=== PATIENT | female | born 1955 | race Caucasian/White ===

== ENCOUNTER 2022-06-24 07:13 | Inpatient (IN) ==
--- NOTE | 2022-06-03 12:03 | PAT Medication Instructions ---
Medication Instructions Date of Service June 03, 2022 Home Medications amoxicillin 875 mg-potassium clavulanate 125 mg tablet 1 tab PO BID atorvastatin 20 mg tablet 20 mg PO QAM cholecalciferol (vitamin D3) 25 mcg (1,000 unit) capsule (Vitamin D3) 25 mcg PO QAM cyanocobalamin (vitamin B-12) 1,000 mcg tablet (Vitamin B-12) 1,000 mcg PO Q OTHER DAY gabapentin 400 mg tablet 400 mg PO QID levothyroxine 50 mcg tablet 50 mcg PO QAM metformin 500 mg tablet 500 mg PO QAM metoprolol tartrate 25 mg tablet 25 mg PO QAM prednisone 20 mg tablet 40 mg PO QAM triamterene 37.5 mg-hydrochlorothiazide 25 mg tablet 1 tab PO QAM zinc 50 mg capsule 50 mg PO QAM zolpidem 10 mg tablet 10 mg PO HS Continue as directed amoxicillin 875 mg-potassium clavulanate 125 mg tablet 1 tab PO BID prednisone 20 mg tablet 40 mg PO QAM DO NOT take the morning of surgery cholecalciferol (vitamin D3) 25 mcg (1,000 unit) capsule (Vitamin D3) 25 mcg PO QAM cyanocobalamin (vitamin B-12) 1,000 mcg tablet (Vitamin B-12) 1,000 mcg PO Q OTHER DAY metformin 500 mg tablet 500 mg PO QAM triamterene 37.5 mg-hydrochlorothiazide 25 mg tablet 1 tab PO QAM zinc 50 mg capsule 50 mg PO QAM Take morning of surgery With a small sip of water, OTHERWISE NOTHING TO EAT OR DRINK AFTER MIDNIGHT: atorvastatin 20 mg tablet 20 mg PO QAM gabapentin 400 mg tablet 400 mg PO QID levothyroxine 50 mcg tablet 50 mcg PO QAM metoprolol tartrate 25 mg tablet 25 mg PO QAM Take evening before surgery gabapentin 400 mg tablet 400 mg PO QID zolpidem 10 mg tablet 10 mg PO HS Other Notes If you have any questions please call us at [phone] or [phone] or [phone] or [phone]
--- NOTE | 2022-06-10 12:36 | Anesthesiology Consultation ---
Date of Service June 10, 2022 Assessment & Plan (1) Encounter for pre-operative examination: - Check BSG AM DOS - COVID screening: Per assessment on 06/10: No known COVID-19 positive contacts. Travel screen negative. Patient vaccinated. Recent sinus infection- symptom onset a few weeks ago now resolved s/p abx/prednisone (completed course). Patient feeling well- denies any Covid-related symptoms at PAT visit 06/10/22. Covid test done at PAT 06/10/22 came back negative. - Hypokalemia: Potassium 3.1 on preop labs done 06/10/22. Note written to PCP- Awaiting hypokalemia response ([facility]/Marina Bethea PAC). Chart Review Chart Review: Patient seen in Pre Admission Testing Teaching & Discussion Pre-Anesthesia Teaching/Discussion Notes: Instructed NPO after midnight before surgery,except medications with 15 cc of water. Medication instructions provided according to the [facility] guidelines. History Surgery Operation Date: 06/24/22 09:35 Proposed Procedures p L3-L5 Decompression and Fusion, Spinal Cord Monitoring - Tim Donaldson DO Height/Weight Height: 5 ft 6 in Weight: 81.8 kg Allergies Allergy/AdvReac Type Severity Reaction Status Date / Time No Known Allergies Allergy Verified 06/03/22 10:23 Medications Home Medications Medication Instructions Recorded Confirmed Last Taken atorvastatin 20 mg tablet 20 mg PO QAM 06/03/22 06/03/22 Unknown cholecalciferol (vitamin D3) 25 25 mcg PO QAM 06/03/22 06/03/22 Unknown mcg (1,000 unit) capsule (Vitamin D3) cyanocobalamin (vitamin B-12) 1,000 mcg PO Q OTHER DAY 06/03/22 06/03/22 Unknown 1,000 mcg tablet (Vitamin B-12) gabapentin 400 mg tablet 400 mg PO QID 06/03/22 06/03/22 Unknown levothyroxine 50 mcg tablet 50 mcg PO QAM 06/03/22 06/03/22 Unknown metformin 500 mg tablet 500 mg PO QAM 06/03/22 06/03/22 Unknown metoprolol tartrate 25 mg tablet 25 mg PO QAM 06/03/22 06/03/22 Unknown triamterene 37.5 1 tab PO QAM 06/03/22 06/03/22 Unknown mg-hydrochlorothiazide 25 mg tablet zinc 50 mg capsule 50 mg PO QAM 06/03/22 06/03/22 Unknown zolpidem 10 mg tablet 10 mg PO HS 06/03/22 06/03/22 Unknown Past Medical History Medical History CKD (chronic kidney disease), stage III Diverticulosis Hearing deficit B/L MARTIN History of COVID-2020 HLD (hyperlipidemia) HTN (hypertension) Hypothyroidism Osteoarthritis PAC (premature atrial contraction) Prediabetes on metformin Sinus infection Recent- symptom resolution after abx/prednisone course Tinnitus Exercise / Class Metabolic Activity II 4-5 Yardwork/Stairs/Walk up hill Past Family History Family History Other No family history of adverse response to anesthesia Past Surgical History Surgical History History of colonoscopy History of endometrial ablation History of oral surgery Past Anesthesia History No Hx of Anesthesia Complications and No Family Hx of Anesthesia Complications History of PONV No Hx of PONV and No Hx of Motion Sickness Social History Smoking Status: Never smoker Do You Dip or Chew Tobacco: No Hx Alcohol Use: Yes alcohol intake frequency: a few times a month Hx Substance Use: No substance use type: does not use Review of Systems Patient denies chest pain, shortness of breath, dyspnea on exertion, fever, chills, cough, wheezing, palpitations. Physical Exam Vital Signs VITALS BP 123/79 P 79 TEMP 97.9 SP02 98%RA RESP 18 PHYSICAL Full cervical extension range of motion. Full TMJ range of motion. TMD 2.5 finger breaths Mallampati Score 2 Dentition: several missing (sides/molars) Lungs: clear throughout to auscultation Cardiac: regular rate and rhythm, no murmurs noted Spine: normal Carotid arteries: negative bruit Extremities: no edema Lab Results Anesthesia Preop Results Results Anesthesia Widget: WBC 7.82 K/ul (4.8-10.8) 06/10/22 Hgb 13.7 g/dl (12.0-16.0) 06/10/22 Hct 40.9 % (37.0-47.0) 06/10/22 Plt 312 K/uL (130-400) 06/10/22 Na 138 mmol/L (136-145) 06/10/22 K 3.1 mmol/L (3.5-5.1) L 06/10/22 Cl 102 mmol/L (98-107) 06/10/22 CO2 29 mmol/L (21-32) 06/10/22 BUN 16 mg/dl (6-23) 06/10/22 Creat 0.91 mg/dl (0.6-1.2) 06/10/22 Glucose Level 149 mg/dl (70-99(Fasting)) H 06/10/22 PT 10.9 Seconds (9.0-12.0) 06/10/22 PTT 25.5 Seconds (21.0-31.0) 06/10/22 INR 1.0 (0.9-1.1) 06/10/22 HA1c 5.8 % (4.5-5.6) H 06/10/22 Urine Color Yellow 06/10/22 Urine Appearance Clear (Clear) 06/10/22 Urine pH 7.5 (4.5-7.5) 06/10/22 Urine Specific [place] 1.008 (1.000-1.030) 06/10/22 Urine Protein Negative (Negative) 06/10/22 Urine Glucose (UA) Negative (Negative) 06/10/22 Urine Ketones Negative (Negative) 06/10/22 Urine Blood Negative (Negative) 06/10/22 Urine Nitrite Negative (Negative) 06/10/22 Urine Bilirubin Negative (Negative) 06/10/22 Urine Urobilinogen Negative (Negative) 06/10/22 Urine Leukocyte Esterase Negative (Negative) 06/10/22 Blood Type B Positive 06/10/22 Antibody Screen NEGATIVE 06/10/22 Testing Electrocardiogram Date: 06/10/[address]/TWA, consider anterolateral ischemia. *Consider anterolateral ischemia/similar findings noted on scanned in 08/14/2017 EKG > stress test done 12/04/17* Chest X-Ray Date: 03/22/22 Transverse linear opacity in the lingula may represent minimal platelike atelectasis or scar. Lungs are otherwise clear. No alveolar consolidation. No pleural effusion. Minimal scoliosis. Stress Test Date: 12/04/17 Type: exercise Exercise echocardiogram examination is uninterpretable due to inadequate endocardial resolution. No concerning ECG changes with stress. Normal resting LV function and wall motion. Grade 1 diastolic dysfunction. LVEF 55-59%. No significant valvular disease. 92% MPHR. 6.4 METS. Cardiology note/stress test response (12/06/2017): "Unfortunately, her peak stress echo images were nondiagnostic. Reassuringly, however, she did not have chest pain with exercise and her stress EKG did not show ischemia. She had normal BP response and achieved a diagnostic heart rate but has below average exercise capacity. Her resting echo shows no evidence of prior IA. The stress echo was not ideal, I think that is reassuring enough in combination with the atypical nature of her most recent symptoms to allow her to start exercising to build her exercise capacity. We discussed that if she develops anginal chest pain or worsening AGGARWAL when doing this, then she should contact me and we will proceed with additional testing."
[~2022-06-24 07:13] MED LIST: ACETAMINOPHEN 500 MG TAB PO SCH; CeleBREX 200 MG CAP PO SCH; GABAPENTIN 300 MG CAP PO SCH; LR 15ML/HR IV SCH
--- NOTE | 2022-06-24 08:07 | History & Physical Bridge Note ---
Date of Service June 24, 2022 History & Physical Bridge Note I have examined the patient, reviewed the History & Physical and in the interval since the performance of the History & Physical I have noted the following changes of clinical significance: no changes noted
--- NOTE | 2022-06-24 08:09 | History & Physical Report ---
Date of Service June 24, 2022 Assessment & Plan (1) Neurogenic claudication due to lumbar spinal stenosis: Plan: L3-L5 decompression and fusion History of Present Illness Chief Complaint: Chronic back and leg pain Primary Care Provider: Tawanna Ayon PA-C This is a 66-year-old female who presents with back and leg pain and feeling since a course of nonoperative care is here for surgical invention Allergies Allergy/AdvReac Type Severity Reaction Status Date / Time No Known Allergies Allergy Verified 06/24/22 07:34 Home Medications Medication Instructions Recorded Confirmed Type atorvastatin 20 mg tablet 20 mg PO QAM 06/03/22 06/24/22 History cholecalciferol (vitamin D3) 25 25 mcg PO QAM 06/03/22 06/24/22 History mcg (1,000 unit) capsule (Vitamin D3) cyanocobalamin (vitamin B-12) 1,000 mcg PO Q OTHER DAY 06/03/22 06/24/22 History 1,000 mcg tablet (Vitamin B-12) gabapentin 400 mg tablet 400 mg PO QID 06/03/22 06/24/22 History levothyroxine 50 mcg tablet 50 mcg PO QAM 06/03/22 06/24/22 History metformin 500 mg tablet 500 mg PO QAM 06/03/22 06/24/22 History metoprolol tartrate 25 mg tablet 25 mg PO QAM 06/03/22 06/24/22 History triamterene 37.5 1 tab PO QAM 06/03/22 06/24/22 History mg-hydrochlorothiazide 25 mg tablet zinc 50 mg capsule 50 mg PO QAM 06/03/22 06/24/22 History zolpidem 10 mg tablet 10 mg PO HS 06/03/22 06/24/22 History Past Med/Surg History Medical History CKD (chronic kidney disease), stage III Diverticulosis Hearing deficit B/L MARTIN History of COVID-2020 HLD (hyperlipidemia) HTN (hypertension) Hypothyroidism Osteoarthritis PAC (premature atrial contraction) Prediabetes on metformin Sinus infection Recent- symptom resolution after abx/prednisone course Tinnitus Surgical History History of colonoscopy History of endometrial ablation History of oral surgery Family History Other No family history of adverse response to anesthesia Social History Smoking Status: Never smoker Second Hand Exposure: Yes (hx); Do You Dip or Chew Tobacco: No; Hx Alcohol Use: Yes Hx Substance Use: No Preferred Language: Czech Communication Ability: Effective Appliance Sales Associate Required: No Beliefs That Will Affect Care: None Current Living Situation: Spouse Feels Safe at Home: Yes Safety Concerns: Feels Safe At This Time Assistive Devices: Contacts, Glasses and Hearing Aid - Bilateral Physical Exam Physical Exam: Patient is alert and oriented Heart regular rhythm Lungs clear Results & Data Results & Data Vital Signs (Past 12 Hours) Vital Signs Temp Pulse Resp BP Pulse Ox O2 Del Method 06/24/22 07:38 36.5 C 82 20 136/89 93 Room Air
[2022-06-24] MEDS ORDERED: NALOXONE HCL 0.4 MG/1 ML VIAL/CARP IV PRN ×2 (08:11→12:33)
[2022-06-24] MEDS ORDERED: ONDANSETRON INJ 2 MG/ML 2 ML VIAL IV PRN ×2 (08:11→12:33)
[2022-06-24] MEDS ORDERED: FLUMAZENIL 0.1 MG/1 ML 10 ML VIAL IV PRN (08:11)
[2022-06-24] MEDS ORDERED: ATROPINE SULFATE 0.1 MG/ML 10ML SYR IV PRN (08:11)
[2022-06-24] MEDS ORDERED: LABETALOL HCL IV 5 MG/ML 20ML IV PRN (08:11)
[2022-06-24] MEDS ORDERED: ePHEDrine sulfate 50 MG/ML AMP IV PRN (08:11)
[2022-06-24] MEDS ORDERED: PROMETHAZINE HCL 12.5 MG in SODIUM CHLORIDE 0.9% 50 ML IV PRN ×2 (08:11→12:33)
[2022-06-24] MEDS ORDERED: PROPOFOL IV EMULSION 10 MG/ML 20 ML VIAL IV ONE (08:22)
[2022-06-24] MEDS ORDERED: MIDAZOLAM HCL 1 MG/ML 2ML VIAL ONE (08:22)
[2022-06-24] MEDS ORDERED: ONDANSETRON INJ 2 MG/ML 2 ML VIAL ONE (08:22)
[2022-06-24] MEDS ORDERED: ROCURONIUM BROMIDE 10 MG/ML 5 ML VIAL IV ONE (08:22)
[2022-06-24] MEDS ORDERED: fentaNYL citrate PF 100 MCG/2 ML VIAL ONE ×2 (08:22→10:21)
[2022-06-24] MEDS ORDERED: LIDOCAINE 2% MPF LOCAL 5 ML VIAL ONE (08:22)
[2022-06-24] MEDS: ceFAZolin 2000MG 2,000 MG/15 ML SYR IV SCH ×3 (08:34→17:59)
[2022-06-24] MEDS ORDERED: BUPIVACAINE/EPINEPHRINE 0.25% 1:200,000 30 ML VIAL ONE (09:35)
[2022-06-24] MEDS ORDERED: ceFAZolin 330 MG/ML 1 GM VIAL ONE (09:36)
[2022-06-24] MEDS ORDERED: FLOSEAL HEMOSTATIC MATRIX 10ML TOP ONE (09:55)
[2022-06-24] MEDS ORDERED: DEXAMETHASONE SOD INJ 4 MG/ML VIAL ONE (09:58)
[2022-06-24] MEDS ORDERED: SUGAMMADEX SODIUM 200 MG/2 ML VIAL IV ONE (10:33)
--- NOTE | 2022-06-24 10:43 | Operative Report ---
Post Operative Report Pre & Post Diagnosis Operation Date: 06/24/22 09:05 Pre-Op Diagnosis: Neurogenic claudication due to lumbar spinal stenosis Post-Op Diagnosis: Neurogenic claudication due to lumbar spinal stenosis I identified the patient and participated in the time-out.: Yes Procedure Operation Date: 06/24/22 09:05 Actual Procedures #1 lumbar decompression with bilateral medial facetectomies and foraminotomies L2-L3, L3-L4 and L4-5. #2 posterior spinal fusion L3-L5. #3 placement posterior instrumentation L3-L4 L4-L5. #4 interbody fusion L3-L4 L4-L5. #5 placement of Spira 12 x 26 mm at L3-L4 and 15 x 26 mm at L4-5. #6 placement locally harvested morselized autograft in the posterior gutters. #7 placement of I factor bone of the talus in interbody space and posterior gutters. Surgeon Tim Donaldson, Drawing Frame Tender Agustina Rios Estimated Blood Loss 350 Findings Consistent with Post-Op Diagnosis Specimens None Indications This is a 66-year-old female who presents above-mentioned diagnosis after failing course of nonoperative care she is here for surgical invention. Description of Procedure Patient was met with identified informed consent obtained. Patient was then taken to the operative suite underwent ablation placed in a prone position the Jeison table top Matheus frame. All bony prominences well-padded eyes inspected to ensure no external pressure placed upon them. This point the lumbar spine was prepped and draped in normal sterile fashion. Sharp dissection with the assistance of Bovie cautery performed down to and exposing the lamina and transverse processes of L3-L4-L5. From caudal to cephalad fashion complete laminectomy of L4 L3 and partial laminectomy of L2 was performed including bilateral medial facetectomies and foraminotomies addressing severe spinal stenosis. Pedicle screws were then placed at L3 L4-5 bilaterally with assist ance of fluoroscopy and appropriate sized brayden placed. By way the transforaminal approach on the right complete discectomy of L4-L5 was performed endplates corrected to subcortical bleeding bone and a 15 x 26 mm Spira cage filled I factor tapped in position. Then proceeded L4 [address] again by way of a trans foraminal approach on the right complete discectomy performed endplates guided to subcortically bone and a 12 x 26 mm Spira cage with I factor tapped in position. The rods were then locked into final position bilaterally. The transverse processes of L3 L4-5 burred to subcortical bleeding bone. I factor, and of the test and locally harvested morselized autograft was placed in the posterior gutters. 15 round ALVIN drain inserted. The incision was then closed with 1 Vicryl to fascia 2-0 Vicryl subcutaneously and 4 Monocryl for final skin closure. Steri-Strips and sterile dressing placed. Patient waken taken to PACU in stable condition. Please note Agustina Rios was present at the entire procedure involved the patient positioning complex portions of the surgery and final skin closure. I attest to the content of the Intraoperative Record and any orders documented therein. Any exceptions are noted below.
--- NOTE | 2022-06-24 11:07 | Fluoroscopy Report ---
INTRAOPERATIVE RADIOGRAPHS CLINICAL HISTORY: Lumbar spinal fusion surgery. Fluoro time: 25 seconds Exposure: 15.47 mGy FINDINGS: 2 spot fluoroscopic views of the lumbar spine are presented. There has been discectomy at L 3-L4 and L4-L5 with laminectomy and posterior fusion at L3-L5. Interpedicular screws are present at a ll levels. The orthopedic hardware appears intact. IMPRESSION: Intraoperative images from lumbar spinal fusion surgery as above. Electronically signed by: Beck Toledo M.D. 06/24/2022 11:06 AM
[2022-06-24] MEDS: fentaNYL citrate PF 100 MCG/2 ML VIAL IV PRN ×4 (11:14→11:29)
[2022-06-24] MEDS: HYDROmorphone INJ 1 MG/ML SYRINGE IV PRN ×4 (11:40→16:38)
--- NOTE | 2022-06-24 12:09 | Anesthesiology Progress Note ---
Date of Service June 24, 2022 Anesthesia Post Procedure Vital Signs Vital Signs: Temp Pulse Pulse Resp BP Pulse Ox O2 Del Method 06/24/22 12:00 36.4 C L 71 22 98/68 L 96 Nasal Cannula 06/24/22 11:50 71 12 106/71 95 Nasal Cannula 06/24/22 11:40 68 10 L 110/76 96 Nasal Cannula 06/24/22 11:30 72 15 114/74 96 Nasal Cannula 06/24/22 11:20 68 12 114/73 97 Oxymask 06/24/22 11:10 74 16 120/76 96 Oxymask 06/24/22 11:01 36.2 C L 84 20 124/89 97 Oxymask 06/24/22 07:38 36.5 C 82 20 136/89 93 Room Air O2 Flow Rate 06/24/22 12:00 2 06/24/22 11:50 2 06/24/22 11:40 2 06/24/22 11:30 2 06/24/22 11:20 5 06/24/22 11:10 5 06/24/22 11:01 5 06/24/22 07:38 Pain Intensity Right Leg: Pain Intensity: 0 Lower Back: Pain Intensity: 4 Transfer of Care Handoff Completed per policy Notes Mental Status: alert / awake / arousable Patient Amnestic to Procedure: Yes Nausea / Vomiting: adequately controlled Pain: adequately controlled Airway Patency, RR, SpO2: stable & adequate BP & HR: stable & adequate Hydration State: stable & adequate Anesthetic Complications: no major complications apparent
[2022-06-24] MEDS ORDERED: ACETAMINOPHEN 500 MG TAB PO PRN (12:33)
[2022-06-24] MEDS ORDERED: FAMOTIDINE 20 MG TAB PO PRN (12:33)
[2022-06-24] MEDS ORDERED: PHARMACY GLYCEMIC MGMT CONSULT PRN (12:33)
[2022-06-24] MEDS ORDERED: traMADol HCL 50 MG TABLET PO PRN (12:33)
[2022-06-24] MEDS ORDERED: DO NOT ADMINISTER FLU VACCINE PRN (12:33)
[2022-06-24] MEDS ORDERED: ALUMINUM/MAGNESIUM SUSP 30 ML UDC PO PRN (12:33)
[2022-06-24] MEDS ORDERED: METOCLOPRAMIDE HCL INJ 5 MG/ML 2 ML VIAL IV PRN (12:33)
[2022-06-24] MEDS ORDERED: MAGNESIUM HYDROXIDE SUSP 30 ML UDC PO PRN (12:33)
[2022-06-24] MEDS ORDERED: DO NOT ADMINISTER PNEUMOCOCCAL VACCINE PRN (12:33)
[2022-06-24] MEDS ORDERED: LORazepam 0.5 MG TAB PO PRN (12:33)
[2022-06-24] MEDS ORDERED: diphenhydrAMINE Capsule 25 MG CAP PO PRN (12:33)
[2022-06-24] MEDS ORDERED: SOD PHOSPHATE/SOD BIPHOSPHATE ENEMA 132 ML BTL PR PRN (12:33)
[2022-06-24] MEDS ORDERED: ONDANSETRON 4 MG OD TAB PO PRN (12:33)
[2022-06-24] MEDS ORDERED: bisacodyL 10 MG SUPP PR PRN (12:33)
[2022-06-24] MEDS ORDERED: LORazepam 2 MG/1 ML VIAL IV PRN (12:33)
[2022-06-24] MEDS ORDERED: ACETAMINOPHEN 1,000 MG/100 ML VIAL IV PRN (12:33)
[2022-06-24] MEDS ORDERED: hydrOXYzine HCl 25 MG TAB PO PRN (12:33)
[2022-06-24] MEDS ORDERED: HYDROmorphone INJ 0.5 MG/0.5 ML SYR IV PRN (12:33)
--- NOTE | 2022-06-24 12:51 | Hospitalist Consultation ---
Date of Consultation June 24, 2022 Assessment & Plan (1) Neurogenic claudication due to lumbar spinal stenosis: POD #0 - L3-L5 Decompression and Fusion - Pain control, PT/OT, DVT Prophylaxis per primary service - Check CBC, BMP in AM - potassium was low pre-operatively, repleted orally and normalized, will monitor post-op - Reviewed use of incentive spirometry with patient and its indication post-op (2) Prediabetes: Pt is on Metformin as outpatient for prediabetes - will hold during admission Follow BSGs, insulin sliding scale (3) Hypothyroidism: (4) HTN (hypertension): (5) CKD (chronic kidney disease), stage III: (6) HLD (hyperlipidemia): Plan Continue other home medications as appropriate. Pt seen and reviewed with collaborating physician, Dr. Kern. Plan of care discussed and as outlined above. Thank you for this consultation. We will continue to follow this patient with you. A member of the [facility]ist Team is available 21/10 via [facility]. Please don't hesitate to reach out with questions. Sahra Napier PA-C Supervising Physician Co-Signing Physician Notes Attending addendum: The patient was seen and examined in medical floor She is status post lumbar decompression and fusion Has been complaining of pain at the back with radiation Denies any other significant symptoms On examination No apparent distress at rest Hemodynamically stable Chest is clear to auscultate bilaterally HeartS1-S2, regular Abdomenbenign Extremitiesnegative for any edema Her labs and imaging studies reviewed Status post L3-L5 decompression and fusion Remains stable with other significant medical condition as mentioned above Agree with assessment and plan as outlined above by SILKE Cano Dr History of Present Illness Reason for Consultation: Post-operative Medical Management Requesting Physician: Dr. Tim Donaldson Attending Physician: Tim Donaldson, DO History of Present Illness This is a 66 y/o female with a hx of CKD3, Prediabetes, HTN, hyperlipidemia, B12 deficiency, hearing loss, hypothyroidism, and lumbar spinal stenosis who underwent L3-L5 decompression/fusion and for whom we have been consulted to assist with post-operative medical management. Pt reports several years of lower back pain that was initially controlled with injections but more recently the injections seem to no longer help. The pain may radiate down her bilateral LE at times. Currently, she rates her post-operative pain as 8 out of 10. The pain feels similar to pain before surgery but is no longer radiating to LE. Of note, during pre-operative work-up, pt was noted to have hypokalemia. She was given one week of potassium supplementation with repeat labs being normal. She does not routinely take a potassium supplement. Her last A1c as part of pre-op w/u was <7. Currently, she denies chest pain, palpitations, SOB, MARTIN, dizziness, sore throat. No numbness or tingling in LE. She does have ongoing issues with peripheral edema intermittently. Does c/o dry mouth and would like to get off of the oxygen as quickly as possible. Allergies Allergy/AdvReac Type Severity Reaction Status Date / Time No Known Allergies Allergy Verified 06/24/22 07:34 Home Medications Medication Instructions Recorded Confirmed Type atorvastatin 20 mg tablet 20 mg PO QAM 06/03/22 06/24/22 History cholecalciferol (vitamin D3) 25 50 mcg PO QAM 06/03/22 06/24/22 History mcg (1,000 unit) capsule (Vitamin D3) cyanocobalamin (vitamin B-12) 1,000 mcg PO Q OTHER DAY 06/03/22 06/24/22 History 1,000 mcg tablet (Vitamin B-12) gabapentin 400 mg tablet 400 mg PO QID 06/03/22 06/24/22 History levothyroxine 50 mcg tablet 50 mcg PO QAM 06/03/22 06/24/22 History metoprolol tartrate 25 mg tablet 25 mg PO QAM 06/03/22 06/24/22 History triamterene 37.5 1 tab PO QAM 06/03/22 06/24/22 History mg-hydrochlorothiazide 25 mg tablet zinc 50 mg capsule 50 mg PO QAM 06/03/22 06/24/22 History zolpidem 10 mg tablet 10 mg PO HS 06/03/22 06/24/22 History metformin 500 mg tablet,extended 500 mg PO DAILY 06/24/22 06/24/22 History release 24 hr Patient History Medical History (Updated 06/24/22 @ 14:22 by Bertha Napier PA-C) B12 deficiency CKD (chronic kidney disease), stage III Diverticulosis Ganglion cyst of both wrists Hearing deficit B/L MARTIN History of COVID-19 2020 HLD (hyperlipidemia) HTN (hypertension) Hypothyroidism Neurogenic claudication due to lumbar spinal stenosis Osteoarthritis PAC (premature atrial contraction) Prediabetes on metformin Tinnitus Surgical History History of colonoscopy History of endometrial ablation History of oral surgery History of tubal ligation Family History Other No family history of adverse response to anesthesia Social History Smoking Status: Never smoker Second Hand Exposure: No; Do You Dip or Chew Tobacco: No; Tobacco Cessation Education Requested by Patient: No Hx Alcohol Use: Yes Hx Substance Use: No Preferred Language: Bengali Communication Ability: Effective Sports Psychologist Required: No Beliefs That Will Affect Care: None Current Living Situation: Spouse Other Information That Helps Us Care for You: No Feels Safe at Home: Yes Safety Concerns: Feels Safe At This Time Assistive Devices: Contacts and Glasses Review of Systems Review of Systems: All systems reviewed & are unremarkable except as noted in HPI & below Constitutional: no fever, no chills and no sweats Eyes: no diplopia Ear, Nose, Mouth, Throat: + dry mouth; no nasal congestion and no sore throat Respiratory: no cough, no dyspnea and no wheezing Cardiovascular: + edema; no chest pain and no palpitations Gastrointestinal: no abdominal pain, no nausea and no vomiting Genitourinary: Verma catheter in place Musculoskeletal: + back pain Integumentary: no rash and no yellowing of the skin Neurologic: no dizziness, no syncope and no headache(s) Physical Exam Constitutional: well developed and well nourished; no acute distress Eyes: + anicteric sclerae Neck: trachea midline Respiratory: no respiratory distress and no labored breathing Auscultation: lungs clear to auscultation bilaterally; no rales, no rhonchi and no wheezes Cardiovascular: Rate/Rhythm: regular rate and regular rhythm Vessels: dorsalis pedis pulses present and radial pulses present Extremities: no pedal edema Gastrointestinal (Abdomen): Inspection/Auscultation: normal bowel sounds; abdomen not distended Percussion/Palpation: abdomen soft; abdomen nontender Musculoskeletal: Head/Neck/Chest: normocephalic, head atraumatic and neck supple Skin: no jaundice Neurologic: moves all extremities; no focal motor deficits and not confused Psychiatric: A+Ox3, euthymic affect Genitourinary: Verma cath in place draining yellow urine Results & Data Results & Data Vital Signs (Past 12 Hours) Vital Signs Temp Pulse Pulse Resp BP Pulse Ox O2 Del Method 06/24/22 12:30 36.5 C 67 16 115/75 95 Nasal Cannula 06/24/22 12:15 66 14 99/72 L 96 Nasal Cannula 06/24/22 12:00 36.4 C L 71 22 98/68 L 96 Nasal Cannula 06/24/22 11:50 71 12 106/71 95 Nasal Cannula 06/24/22 11:40 68 10 L 110/76 96 Nasal Cannula 06/24/22 11:30 72 15 114/74 96 Nasal Cannula 06/24/22 11:20 68 12 114/73 97 Oxymask 06/24/22 11:10 74 16 120/76 96 Oxymask 06/24/22 11:01 36.2 C L 84 20 124/89 97 Oxymask 06/24/22 07:38 36.5 C 82 20 136/89 93 Room Air O2 Flow Rate 06/24/22 12:30 2 06/24/22 12:15 2 06/24/22 12:00 2 06/24/22 11:50 2 06/24/22 11:40 2 06/24/22 11:30 2 06/24/22 11:20 5 06/24/22 11:10 5 06/24/22 11:01 5 06/24/22 07:38 Laboratory Results 06/24/22 06/24/22 06/24/22 07:23 07:41 07:55 POC Glucose 109 H SARS-CoV-2, RNA, NAAT NEGATIVE Blood Type B Positive Antibody Screen NEGATIVE Crossmatch See Detail 06/24/22 11:03 POC Glucose 153 H SARS-CoV-2, RNA, NAAT Blood Type Antibody Screen Crossmatch Medications Administered 06/24/22 06/24/22 06/24/22 07:23 07:41 07:55 POC Glucose 109 H SARS-CoV-2, RNA, NAAT NEGATIVE Blood Type B Positive Antibody Screen NEGATIVE Crossmatch See Detail 06/24/22 11:03 POC Glucose 153 H SARS-CoV-2, RNA, NAAT Blood Type Antibody Screen Crossmatch
[2022-06-24] MEDS: SODIUM CHLORIDE 0.9% 1000ML 1,000 ML IV SCH ×2 (13:03→22:25)
[2022-06-24] MEDS ORDERED: GLUCAGON FOR INJ 1 MG VIAL IM PRN (13:15)
[2022-06-24] MEDS ORDERED: GLUCOSE 10 TAB/TUBE PO PRN (13:15)
[2022-06-24] MEDS ORDERED: GLUCOSE 40% GEL 15 GM TUBE PO PRN (13:15)
[2022-06-24] MEDS ORDERED: CARBOHYDRATES FOR HYPOGLYCEMIA PO PRN (13:15)
[2022-06-24] MEDS ORDERED: DEXTROSE 50% 50 ML SYRINGE IV PRN (13:15)
--- NOTE | 2022-06-24 14:53 | Pharmacy Report ---
Pharmacy Glycemic Short Note 2 - Date of Service June 24, 2022 - Glycemic Short BSG Results (Last 24 hours): 06/24/22 06/24/22 07:55 11:03 POC Glucose 109 H 153 H OUTPATIENT ANTIDIABETIC REGIMEN: * metformin 500 mg daily ASSESSMENT: * Patient admitted POD #0. * Will start novolog weight based stress of 2 * Lantus scale with dinner * Patient with prediabetes, good A1c outpatient PLAN FOR INPATIENT GLYCEMIC CONTROL: * Hold outpatient oral diabetes medications * Basal insulin * Lantus 0/15 units x 1 * Bolus insulin * NovoLog per scale ACHS or Q6hrs while NPO * Goal Range: Low 110 mg/dL - High 140 mg/dL * Correction Factor: 30 mg/dL/unit * Nutritional / Prandial insulin per carb ratio of 1 unit per 10 grams CHO consumed
[2022-06-24] MEDS: INSULIN ASPART PER UNIT CHARGE SC SCH ×3 (14:55→22:22)
[2022-06-24] MEDS: GABAPENTIN 400 MG CAP PO SCH ×3 (16:27→22:15)
[2022-06-24] MEDS ORDERED: LANTUS PER UNIT CHARGE SQ ONE (16:30)
[2022-06-24] MEDS: CYANOCOBALAMIN (B-12) 500 MCG TABLET PO SCH (17:59)
[2022-06-24] MEDS: DOCUSATE SODIUM/SENNA 50/8.6MG TAB PO SCH (22:15)
[2022-06-24] MEDS: ZOLPIDEM TARTRATE 10 MG TAB PO SCH (22:15)
[2022-06-24] MEDS: oxyCODONE HCL IR 5 MG TAB (IMMEDIATE RELEASE) PO PRN (22:20)
[2022-06-25] MEDS: INSULIN ASPART PER UNIT CHARGE SC SCH ×6 (00:32→21:25)
[2022-06-25] MEDS: ceFAZolin 2000MG 2,000 MG/15 ML SYR IV SCH (00:55)
[2022-06-25 06:07] LABS: Basophils # (auto) 0.01 K/uL (0-0.2); Basophils % (auto) 0.2 %; Eosinophils # (auto) 0.01 K/uL (0-0.50); Eosinophils % (auto) 0.2 %; Hematocrit (blood only) 29.5 % (37.0-47.0); Hemoglobin 9.8 g/dl (12.0-16.0); Immature Granulocytes # (auto) 0.02 K/uL (0.01-0.20); Immature Granulocytes % (auto) 0.3 %; Lymphocytes # (auto) 1.74 K/uL (1.2-3.4); Mean Corpuscular Hemoglobin 30.7 pg (25.0-34.0); Mean Corpuscular Hgb Conc 33.2 g/dL (32.0-36.0); Mean Corpuscular Volume 92.5 fL (80.0-100.0); Mean Platelet Volume 10.5 fL (9.4-12.4); Monocytes # (auto) 0.66 K/uL (0.11-0.59); Monocytes % (auto) 10.6 %; Neutrophils # (auto) 3.78 K/uL (1.40-6.50); Neutrophils % (auto) 60.7 %; Platelet Count 220 K/uL (130-400); RDW Coefficient of Variation 12.7 % (11.5-14.5); RDW Standard Deviation 43.2 fL (36.4-46.3); Red Blood Count 3.19 M/uL (4.20-5.40); White Blood Count 6.22 K/ul (4.8-10.8)
[2022-06-25] MEDS: LEVOTHYROXINE SODIUM 50 MCG TABLET PO SCH (06:16)
[2022-06-25] MEDS: POLYETHYLENE (MIRALAX) 17 GM PACK PO SCH ×4 (06:16→21:19)
[2022-06-25 06:35] LABS: BUN Creatinine Ratio 15.4 (10-20); Calcium 8.5 mg/dl (8.6-10.3); Creatinine Clr Calc Pharmacy 74.3 ml/min; Est GFR (African American) 90.5 ml/min; Est GFR (Non-African American) 78.1 ml/min; Potassium 3.4 mmol/L (3.5-5.1)
[2022-06-25] MEDS: dexAMETHasone 6 MG in SYRINGE 0 ML IV SCH (08:37)
[2022-06-25] MEDS: oxyCODONE HCL IR 5 MG TAB (IMMEDIATE RELEASE) PO PRN ×3 (08:37→21:24)
[2022-06-25] MEDS: ZINC SULFATE 220 MG CAPSULE PO SCH (08:38)
[2022-06-25] MEDS: TRIAMTERENE/HCTZ 37.5/25MG TAB PO SCH (08:38)
[2022-06-25] MEDS: CHOLECALCIFEROL 1,000 UNITS 25 MCG TAB PO SCH (08:38)
[2022-06-25] MEDS: METOPROLOL TARTRATE 25 MG TAB PO SCH (08:38)
[2022-06-25] MEDS: GABAPENTIN 400 MG CAP PO SCH ×4 (08:38→21:18)
[2022-06-25] MEDS: ATORVASTATIN 20 MG TAB PO SCH (08:38)
--- NOTE | 2022-06-25 09:41 | Orthopedic Progress Note ---
Date of Service June 25, 2022 Assessment & Plan (1) Neurogenic claudication due to lumbar spinal stenosis: Plan: This time continue physical therapy monitor ALVIN output over the discharge home next few days. Admission and Anticipated Discharge Date Admission Date: June 24, 2022 Subjective Patient's back pain is controlled leg pain markedly improved Physical Exam Physical Exam: On exam she is constricted testing peers comfortable. Results & Data Vital Signs (Past 12 Hours) Vital Signs Temp Pulse Resp BP Pulse Ox O2 Del Method O2 Flow Rate 06/25/22 07:45 36.5 C 95 H 18 110/71 95 Nasal Cannula 2 06/25/22 03:57 36.9 C 89 16 107/69 96 Nasal Cannula 2 06/24/22 23:54 36.7 C 95 H 16 110/71 94 Nasal Cannula 2
--- NOTE | 2022-06-25 10:58 | Pharmacy Report ---
Pharmacy Glycemic Short Note 2 - Date of Service June 25, 2022 - Glycemic Short BSG Results (Last 24 hours): 06/24/22 06/24/22 06/24/22 11:03 16:56 20:37 Glucose POC Glucose 153 H 128 H 178 H 06/24/22 06/25/22 06/25/22 23:58 04:00 05:31 Glucose 108 H POC Glucose 122 H 119 H 06/25/22 08:15 Glucose POC Glucose 119 H OUTPATIENT ANTIDIABETIC REGIMEN: * metformin 500 mg daily ASSESSMENT: 06/25: * POD # 1 s/p L3 - L5 decompression and fusion. Patient ordered dexamethasone 6 mg IV daily. * Bela required little insulin yesterday (6 units of Novolog) despite administration of dexamethasone IV chris-operatively. * BSG rise following dinner yesterday. Will tighten carb coverage. * Hold off on basal insulin. Fasting BSG = 119 mg/dL. 06/24: * Patient admitted POD #0. * Will start novolog weight based stress of 2 * Lantus scale with dinner * Patient with prediabetes, good A1c outpatient PLAN FOR INPATIENT GLYCEMIC CONTROL: * Hold outpatient oral diabetes medications * Basal insulin * Hold * Bolus insulin * NovoLog per scale ACHS or Q6hrs while NPO * Goal Range: Low 110 mg/dL - High 140 mg/dL * Correction Factor: 30 mg/dL/unit * Nutritional / Prandial insulin per carb ratio of 1 unit per 8 grams CHO consumed
[2022-06-25] MEDS: HYDROmorphone INJ 1 MG/ML SYRINGE IV PRN (11:49)
[2022-06-25] MEDS ORDERED: POTASSIUM CHLORIDE CRTAB 20 MEQ TABCR PO STA (13:54)
--- NOTE | 2022-06-25 17:02 | Hospitalist Progress Note ---
Date of Service June 25, 2022 Assessment & Plan (1) Neurogenic claudication due to lumbar spinal stenosis: Plan: Status post day#1 L3-L5 Decompression and Fusion performed by Dr. Donaldson No postop complication Continue incentive spirometry Pain control as per Ortho Continue PT /OT eval Hemoglobin 9.8 Fall precaution (2) Prediabetes: Plan: Continue to hold metformin during admission Continue insulin sliding scale Continue monitor blood sugar (3) Hypothyroidism: Plan: Continue levothyroxine 50 mcg daily (4) HTN (hypertension): Plan: BP stable Continue metoprolol, triamterene / hydrochlorothiazide (5) CKD (chronic kidney disease), stage III: Plan: Creatinine stable (6) HLD (hyperlipidemia): Plan: Continue atorvastatin Hypokalemia Possible related to triamterene/HCTZ Potassium 3.4 K replaced Continue monitor BMP Admission and Anticipated Discharge Date Admission Date: June 24, 2022 Subjective Patient was seen and evaluated for postop follow-up Lying in bed with no acute distress with family at bedside Patient said that she feels much better today She said she was able to walk earlier with therapy today in the hallway Denies any chest pain, palpitation, dizziness, shortness of breath. Review of Systems Review of Systems: All systems reviewed & are unremarkable except as noted in Subjective Physical Exam Physical Exam: General- No acute distress Head- atraumatic Eyes- PERRL, EOMI, ENT- oropharynx clear Neck- supple, no JVD Lungs- clear to auscultation Heart- regular rhythm; no murmur Abdomen- normal bowel sounds, soft, nontender Extremities- no calf tenderness Neuro- alert, oriented x 3; PERRL, EOMI; no facial palsy; no dysarthria Skin- warm & dry Results & Data Results & Data Vital Signs (Past 12 Hours) Vital Signs Temp Pulse Resp BP Pulse Ox O2 Del Method O2 Flow Rate 06/25/22 15:22 36.7 C 83 18 104/67 96 Room Air 06/25/22 11:33 36.9 C 85 18 129/79 96 Room Air 06/25/22 07:45 36.5 C 95 H 18 110/71 95 Nasal Cannula 2
[2022-06-25] MEDS: DOCUSATE SODIUM/SENNA 50/8.6MG TAB PO SCH (21:18)
[2022-06-25] MEDS: ZOLPIDEM TARTRATE 10 MG TAB PO SCH (23:05)
[2022-06-26] MEDS: POLYETHYLENE (MIRALAX) 17 GM PACK PO SCH ×3 (06:19→17:35)
[2022-06-26] MEDS: LEVOTHYROXINE SODIUM 50 MCG TABLET PO SCH (06:19)
[2022-06-26 06:46] LABS: Hematocrit (blood only) 28.1 % (37.0-47.0); Hemoglobin 9.5 g/dl (12.0-16.0); Mean Corpuscular Hemoglobin 30.7 pg (25.0-34.0); Mean Corpuscular Hgb Conc 33.8 g/dL (32.0-36.0); Mean Corpuscular Volume 90.9 fL (80.0-100.0); Mean Platelet Volume 11.1 fL (9.4-12.4); Platelet Count 231 K/uL (130-400); RDW Coefficient of Variation 12.8 % (11.5-14.5); RDW Standard Deviation 42.2 fL (36.4-46.3); Red Blood Count 3.09 M/uL (4.20-5.40); White Blood Count 8.82 K/ul (4.8-10.8)
[2022-06-26 07:12] LABS: BUN Creatinine Ratio 18.8 (10-20); Calcium 8.8 mg/dl (8.6-10.3); Creatinine Clr Calc Pharmacy 68.2 ml/min; Est GFR (African American) 81.6 ml/min; Est GFR (Non-African American) 70.4 ml/min; Potassium 3.3 mmol/L (3.5-5.1)
[2022-06-26] MEDS: oxyCODONE HCL IR 5 MG TAB (IMMEDIATE RELEASE) PO PRN ×2 (07:56→19:32)
[2022-06-26] MEDS: CHOLECALCIFEROL 1,000 UNITS 25 MCG TAB PO SCH (08:05)
[2022-06-26] MEDS: CYANOCOBALAMIN (B-12) 500 MCG TABLET PO SCH (08:06)
[2022-06-26] MEDS: ZINC SULFATE 220 MG CAPSULE PO SCH (08:06)
[2022-06-26] MEDS: dexAMETHasone 6 MG in SYRINGE 0 ML IV SCH (08:06)
[2022-06-26] MEDS: GABAPENTIN 400 MG CAP PO SCH ×4 (08:06→21:43)
[2022-06-26] MEDS: ATORVASTATIN 20 MG TAB PO SCH (08:06)
[2022-06-26] MEDS: METOPROLOL TARTRATE 25 MG TAB PO SCH (08:06)
[2022-06-26] MEDS: TRIAMTERENE/HCTZ 37.5/25MG TAB PO SCH (08:06)
[2022-06-26] MEDS: INSULIN ASPART PER UNIT CHARGE SC SCH ×4 (09:00→20:47)
[2022-06-26] MEDS ORDERED: POTASSIUM CHLORIDE CRTAB 20 MEQ TABCR PO STA (09:22)
--- NOTE | 2022-06-26 09:28 | Hospitalist Progress Note ---
Date of Service June 26, 2022 Assessment & Plan (1) Neurogenic claudication due to lumbar spinal stenosis: Plan: Status post day#2 L3-L5 Decompression and Fusion performed by Dr. Donaldson No postop complication Continue incentive spirometry Pain control as per Ortho Continue PT /OT eval Fall precaution Acute blood loss anemia, post-op and likely also dilutional Pre-op Hgb 13.7 expected, no need for blood transfusion Hemoglobin 9.5 - stable from yesterday monitor H&H (2) Prediabetes: Plan: Continue to hold metformin during admission Continue insulin sliding scale Continue monitor blood sugar (3) Hypothyroidism: Plan: Continue levothyroxine 50 mcg daily (4) HTN (hypertension): Plan: BP stable Continue metoprolol, triamterene / hydrochlorothiazide (5) CKD (chronic kidney disease), stage III: Plan: Creatinine stable (6) HLD (hyperlipidemia): Plan: Continue atorvastatin Hypokalemia Possible related to triamterene/HCTZ Potassium 3.3 K replace and monitor Continue monitor BMP Admission and Anticipated Discharge Date Admission Date: June 24, 2022 Subjective Patient seen in follow-up of med consult s/p spinal surgery Lying in bed in no acute distress, PT at the bedside Reports back pain is improved and overall feels better She said she was able to walk in the hallway Voiding without difficulty, passing flatus, no BM yet Denies any fever, chills,chest pain, palpitation, dizziness, shortness of breath, abd. pain, n/v Review of Systems Review of Systems: All systems reviewed & are unremarkable except as noted in Subjective Physical Exam Physical Exam: General- No acute distress Head- at raumatic Eyes- PER RL, EOMI, ENT- izzy pharynx clear Neck - supple, no JVD L ungs- clear to aus cultation Heart- r egular rhythm; no murmur Abdomen- no rmal bowel sounds, soft, nontender E xtremities- moves extremities Neuro - alert, oriented x 3; PERRL, EOMI; no facial palsy; n o dysarthria, move s extremities Skin - warm & dry Results & Data Results & Data Vital Signs (Past 12 Hours) Vital Signs Temp Pulse Resp BP Pulse Ox O2 Del Method 06/26/22 07:43 36.8 C 88 16 105/63 96 Room Air 06/25/22 21:43 37.0 C 81 16 105/62 96 Room Air Laboratory Results 06/26/22 06/26/22 06/26/22 Range/Units 07:55 05:26 05:26 WBC 8.82 (4.8-10.8) K/ul RBC 3.09 L (4.20-5.40) M/uL Hgb 9.5 L (12.0-16.0) g/dl Hct 28.1 L (37.0-47.0) % MCV 90.9 (80.0-100.0) fL MCH 30.7 (25.0-34.0) pg MCHC 33.8 (32.0-36.0) g/dL RDW Std Deviation 42.2 (36.4-46.3) fL RDW Coeff of Elaina 12.8 (11.5-14.5) % Plt Count 231 (130-400) K/uL MPV 11.1 (9.4-12.4) fL Sodium 140 (136-145) mmol/L Potassium 3.3 L (3.5-5.1) mmol/L Chloride 105 (98-107) mmol/L Carbon Dioxide 28 (21-32) mmol/L Anion Gap 7 (3-11) BUN 16 (6-23) mg/dl Creatinine 0.85 (0.6-1.2) mg/dl Est Cr Clr Drug Dosing 68.2 ml/min Est GFR ( Amer) 81.6 ml/min Est GFR (Non-Af Amer) 70.4 ml/min BUN/Creatinine Ratio 18.8 (10-20) Glucose 99 (70-99(Fasting)) mg/dl POC Glucose 108 H (70-99) mg/dl Calcium 8.8 (8.6-10.3) mg/dl 06/25/22 06/25/22 06/25/22 Range/Units 20:25 17:00 12:02 WBC (4.8-10.8) K/ul RBC (4.20-5.40) M/uL Hgb (12.0-16.0) g/dl Hct (37.0-47.0) % MCV (80.0-100.0) fL MCH (25.0-34.0) pg MCHC (32.0-36.0) g/dL RDW Std Deviation (36.4-46.3) fL RDW Coeff of Elaina (11.5-14.5) % Plt Count (130-400) K/uL MPV (9.4-12.4) fL Sodium (136-145) mmol/L Potassium (3.5-5.1) mmol/L Chloride (98-107) mmol/L Carbon Dioxide (21-32) mmol/L Anion Gap (3-11) BUN (6-23) mg/dl Creatinine (0.6-1.2) mg/dl Est Cr Clr Drug Dosing ml/min Est GFR ( Amer) ml/min Est GFR (Non-Af Amer) ml/min BUN/Creatinine Ratio (10-20) Glucose (70-99(Fasting)) mg/dl POC Glucose 116 H 169 H 122 H (70-99) mg/dl Calcium (8.6-10.3) mg/dl Medications Administered Current Inpatient Medications Acetaminophen (Acetaminophen 500 Mg Tab) 1,000 mg PO Q8H PRN PRN Reason: MILD Pain Scale 1,2,3 & Pre PT Stop: 07/24/22 12:32 Al Hydrox/Mg Hydrox/Simethicone (Aluminum/Magnesium Susp 30 Ml Udc) 30 ml PO Q6H PRN PRN Reason: Dyspepsia Stop: 07/24/22 12:32 Atorvastatin Calcium (Atorvastatin 20 Mg Tab) 20 mg PO QAM [facility] Stop: 07/25/22 08:59 Last Admin: 06/26/22 08:06 Dose: 20 mg Bisacodyl (Bisacodyl 10 Mg Supp) 10 mg NV DAILY PRN PRN Reason: Constipation Stop: 07/24/22 12:32 Cyanocobalamin (Cyanocobalamin (B-12) 500 Mcg Tablet) 1,000 mcg PO Q2D@0900 [facility] Stop: 07/24/22 12:55 Last Admin: 06/26/22 08:06 Dose: 1,000 mcg Dextrose (Dextrose 50% 50 Ml Syringe) 25 - 50 ml IV UD PRN; Protocol PRN Reason: Hypoglycemia Protocol Stop: 07/24/22 13:14 Diphenhydramine HCl (Diphenhydramine Capsule 25 Mg Cap) 25 mg PO Q6H PRN PRN Reason: Allergic Rhinitis/Insomnia Stop: 07/24/22 12:32 Famotidine (Famotidine 20 Mg Tab) 20 mg PO Q12H PRN PRN Reason: Dyspepsia Stop: 07/24/22 12:32 Gabapentin (Gabapentin 400 Mg Cap) 400 mg PO QID RAFAELA Stop: 07/24/22 12:59 Last Admin: 06/26/22 08:06 Dose: 400 mg Glucagon (Glucagon For Inj 1 Mg Vial) 1 mg IM UD PRN; Protocol PRN Reason: Hypoglycemia Protocol Stop: 07/24/22 13:14 Glucose (Glucose 40% Gel 15 Gm Tube) 15 - 30 gm PO UD PRN; Protocol PRN Reason: Hypoglycemia Protocol Stop: 07/24/22 13:14 Glucose (Glucose 10 Tab/Tube) 4 - 8 tab PO UD PRN; Protocol PRN Reason: Hypoglycemia Protocol Stop: 07/24/22 13:14 Hydromorphone HCl (Hydromorphone Inj 0.5 Mg/0.5 Ml Syr) 0.5 mg IV Q3H PRN PRN Reason: MODERATE Pain (Scale 4,5,6) & Pre PT Stop: 07/08/22 12:32 Hydromorphone HCl (Hydromorphone Inj 1 Mg/Ml Syringe) 1 mg IV Q3H PRN PRN Reason: SEVERE Pain (Scale 7,8,9,10) Stop: 07/08/22 12:32 Last Admin: 06/25/22 11:49 Dose: 1 mg Hydroxyzine HCl (Hydroxyzine Hcl 25 Mg Tab) 25 mg PO Q8H PRN PRN Reason: Anxiety Stop: 07/24/22 12:32 Promethazine HCl 12.5 mg/ (Sodium Chloride) 50.5 mls @ 202 mls/hr IV Q6H PRN PRN Reason: Nausea &/or Vomiting Stop: 07/24/22 12:32 Dexamethasone 6 mg/ Syringe 1.5 mls @ 1 mls/min IV DAILY RAFAELA Stop: 07/25/22 08:59 Last Admin: 06/26/22 08:06 Dose: 1 mls/min Influenza Virus Vaccine Quadrival (Do Not Administer Flu Vaccine) 1 each N/A PRN PRN PRN Reason: Notification Stop: 07/24/22 12:32 Insulin Aspart (Insulin Aspart Per Unit Charge) 0 units SC ACHS [facility] Stop: 07/24/22 13:14 Last Admin: 06/26/22 09:00 Dose: 4 units Levothyroxine Sodium (Levothyroxine Sodium 50 Mcg Tablet) 50 mcg PO DAILYBB [facility] Stop: 07/25/22 06:29 Last Admin: 06/26/22 06:19 Dose: 50 mcg Lorazepam (Lorazepam 0.5 Mg Tab) 0.5 mg PO Q8H PRN PRN Reason: Sedation/Anxiety Stop: 07/24/22 12:32 Lorazepam (Lorazepam 2 Mg/1 Ml Vial) 0.5 mg IV Q8H PRN PRN Reason: Sedation/Anxiety Stop: 07/24/22 12:32 Magnesium Hydroxide (Magnesium Hydroxide Susp 30 Ml Udc) 30 ml PO Q24H PRN PRN Reason: Constipation Stop: 07/24/22 12:32 Metoclopramide HCl (Metoclopramide Hcl Inj 5 Mg/Ml 2 Ml Vial) 10 mg IV Q6H PRN PRN Reason: Nausea &/or Vomiting Stop: 07/24/22 12:32 Metoprolol Tartrate (Metoprolol Tartrate 25 Mg Tab) 25 mg PO QAM [facility] Stop: 07/25/22 08:59 Last Admin: 06/26/22 08:06 Dose: 25 mg Miscellaneous (Carbohydrates For Hypoglycemia ) 15 - 30 gm PO UD PRN PRN Reason: Hypoglycemia Treatment Stop: 07/24/22 13:14 Miscellaneous Information (Pharmacy Glycemic Mgmt Consult) 1 each N/A UD PRN PRN Reason: Consult Stop: 07/24/22 12:32 Naloxone HCl (Naloxone Hcl 0.4 Mg/1 Ml Vial/Carp) 0.1 mg IV Q5M PRN PRN Reason: Oversedation/Resp depression Stop: 07/24/22 12:32 Ondansetron HCl (Ondansetron Inj 2 Mg/Ml 2 Ml Vial) 4 mg IV Q6H PRN PRN Reason: Nausea &/or Vomiting Stop: 07/24/22 12:32 Ondansetron HCl (Ondansetron 4 Mg Od Tab) 4 mg PO Q6H PRN PRN Reason: Nausea Stop: 07/24/22 12:32 Oxycodone HCl (Oxycodone Hcl Ir 5 Mg Tab (Immediate Release)) 5 - 10 mg PO Q4H PRN PRN Reason: Pain & Pre PT Stop: 07/08/22 12:32 Last Admin: 06/26/22 07:56 Dose: 5 mg Pneumococcal Polyvalent Vaccine (Do Not Administer Pneumococcal Vaccine) 1 each N/A PRN PRN PRN Reason: Notification Stop: 07/24/22 12:32 Polyethylene Glycol (Polyethylene (Miralax) 17 Gm Pack) 17 gm PO Q6 RAFAELA Stop: 07/25/22 05:59 Last Admin: 06/26/22 06:19 Dose: 17 gm Senna/Docusate Sodium (Docusate Sodium/Senna 50/8.6mg Tab) 2 tab PO HS RAFAELA Stop: 07/24/22 20:59 Last Admin: 06/25/22 21:18 Dose: 2 tab Sodium Biphosphate/Sodium Phosphate (Sod Phosphate/Sod Biphosphate Enema 132 Ml Btl) 132 ml NV ONE PRN PRN Reason: Constipation Stop: 07/24/22 12:32 Tramadol HCl (Tramadol Hcl 50 Mg Tablet) 50 - 100 mg PO Q4H PRN PRN Reason: Moderate-Severe pain & Pre PT Stop: 07/24/22 12:32 Last Admin: 06/24/22 19:57 Dose: 100 mg Triamterene/Hydrochlorothiazide (Triamterene/Hctz 37.5/25mg Tab) 1 tab PO QAM [facility] Stop: 07/25/22 08:59 Last Admin: 06/26/22 08:06 Dose: 1 tab Vitamin D (Cholecalciferol 1,000 Units 25 Mcg Tab) 1,000 units PO QAM [facility] Stop: 07/25/22 08:59 Last Admin: 06/26/22 08:05 Dose: 1,000 units Zinc Sulfate (Zinc Sulfate 220 Mg Capsule) 220 mg PO QAM RAFAELA Stop: 07/25/22 08:59 Last Admin: 06/26/22 08:06 Dose: 220 mg Zolpidem Tartrate (Zolpidem Tartrate 10 Mg Tab) 10 mg PO HS [facility] Stop: 07/24/22 20:59 Last Admin: 06/25/22 23:05 Dose: 10 mg
--- NOTE | 2022-06-26 10:56 | Orthopedic Progress Note ---
Date of Service June 26, 2022 Assessment & Plan (1) Neurogenic claudication due to lumbar spinal stenosis: Plan: This point patient will continue therapy monitor right ALVIN operatively discharge home tomorrow. Admission and Anticipated Discharge Date Admission Date: June 24, 2022 Subjective Back pain controlled leg pain improved. No bowel movement yet. Physical Exam Physical Exam: She is up and ambulating good strength testing. Appears comfortable. Results & Data Vital Signs (Past 12 Hours) Vital Signs Temp Pulse Resp BP Pulse Ox O2 Del Method 06/26/22 07:43 36.8 C 88 16 105/63 96 Room Air
[2022-06-26] MEDS: DOCUSATE SODIUM/SENNA 50/8.6MG TAB PO SCH (21:43)
[2022-06-26] MEDS: ZOLPIDEM TARTRATE 10 MG TAB PO SCH (23:16)
[2022-06-27] MEDS: POLYETHYLENE (MIRALAX) 17 GM PACK PO SCH ×3 (00:02→12:07)
[2022-06-27] MEDS: LEVOTHYROXINE SODIUM 50 MCG TABLET PO SCH (05:32)
[2022-06-27 06:11] LABS: Hematocrit (blood only) 27.3 % (37.0-47.0); Hemoglobin 9.1 g/dl (12.0-16.0); Mean Corpuscular Hemoglobin 30.5 pg (25.0-34.0); Mean Corpuscular Hgb Conc 33.3 g/dL (32.0-36.0); Mean Corpuscular Volume 91.6 fL (80.0-100.0); Mean Platelet Volume 10.7 fL (9.4-12.4); Platelet Count 215 K/uL (130-400); RDW Coefficient of Variation 12.8 % (11.5-14.5); RDW Standard Deviation 42.6 fL (36.4-46.3); Red Blood Count 2.98 M/uL (4.20-5.40); White Blood Count 8.05 K/ul (4.8-10.8)
[2022-06-27 06:30] LABS: BUN Creatinine Ratio 23.4 (10-20); Creatinine Clr Calc Pharmacy 75.3 ml/min; Est GFR (Non-African American) 79.3 ml/min; Potassium 3.8 mmol/L (3.5-5.1)
--- NOTE | 2022-06-27 08:21 | Discharge Summary ---
Date of Service June 27, 2022 Admission HPI Per Admitting Provider This is a 66-year-old female who presents with back and leg pain and feeling since a course of nonoperative care is here for surgical invention Principal Diagnosis Lumbar spinal stenosis with neurogenic claudication Discharge Data Allergies Allergy/AdvReac Type Severity Reaction Status Date / Time No Known Allergies Allergy Verified 06/24/22 07:34 Consultations 06/24/22 12:33 Consult Hospitalist Routine Procedures Performed Operation Date: 06/24/22 09:05 Actual Procedures p L3-L5 Decompression and Fusion(Not Applicable) - Tim Donaldson DO Ordered Studies 06/24/22 [place] lumbar spine 2-3V Routine Hospital Course (1) Neurogenic claudication due to lumbar spinal stenosis: Patient went for emergent fusion tolerated this well stable orthopedic for postoperative. Postop and when she was up and ambulating progress postop day #2 and postoperative day 3 ALVIN drain had decreased probably. Excellent strength testing. Pain well controlled. Subsequently discharged home. Discharge orders and instructions found in the chart for further review. Total Time Total Time Spent Total Time Spent (In Minutes): 20 minutes Discharge Plan Discharge Items Patient Disposition: Home - Self-Care Reason For Visit: Spinal Stenosis, Lumbar Region without Neurogenic Discharge Diagnosis: spinal stenosis Activity: As commented below Non-emergency contact: Primary Care Provider Call non-emergency contact if: you have any medication questions Follow-up/Referrals: PCP,JUANCARLOS [Physician] - Diet: Regular Addtl Attending Provider Instructions: ACTIVITY RECOMMENDATIONS: SELF CARE INSTRUCTIONS AFTER THORACIC/LUMBAR FUSIONS 1. You may walk to your tolerance. It is good exercise for your legs and back. Expect some back and intermittent leg aches and pains. 2. You may perform "counter-top" level activities (make a sandwich, myles with a project, etc.). 3. No bending or lifting of more than 10 pounds or back twisting of any nature (roll like a log when turning in bed). 4. You may ride in a car for 20-30 minutes at a time. No driving until after your first visit with your doctor. 5. Frequent changes of position and restricting sitting to 30 minutes at a time will help limit the amount of back spasms and stiffness you may experience. 6. You may discontinue the use of ambulatory aids (cane, crutches, etc.) once your strength and confidence allow. 7. You may crimping machine operator for metal the shower and let water strike your incision when you arrive home at least once daily. Do not take a tub bath, sit in a hot tub or go into a swimming pool until after your first recheck in the office. SPECIAL CARE INSTRUCTIONS: VERY IMPORTANT TO READ AND REVIEW A. Your surgical incision has been closed with a cosmetic suture under the skin that will dissolve in about 6 weeks. In 14 days, you can use a pair of clean scissors and cut the suture that is left outside of the skin at the ends of your incision. 1. The small skin tapes can be removed 7 days after surgery if they have not fallen off by that point. 2. You may keep the wound open to air as much as possible to promote healing after post-op day number 5 unless told otherwise by your doctor. 3. If you think the wound looks like it is becoming infected (redness or worsening drainage) and/or you are experiencing fever, chill or worsening back pain and muscle spasms, contact the office so that we may evaluate you as soon as possible. B. Complications are uncommon, but please contact us if you have any signs or symptoms of: 1. wound infection (fever higher than 102.5 degrees F, redness, separation of wound, drainage, or increasing pain from the incision) 2. blood clots in legs (pain, swelling, redness and warmth in legs) 3. urinary tract infection (fever higher than 102.5 degrees F, burning upon urination or increased frequency of urination) 4. nerve problems (inability to walk on your toes or heels, numbness, loss of bowel or bladder control) 5. any other symptoms that concern you C. Please call the office at if you have any concerns or questions about your operation or recovery. D. No smoking! Smoking drastically decreases the chance of a solid fusion. E. Do not take any anti-inflammatory medications (Indocin, Advil, Motrin, Aspirin, Naprosyn, etc.) as these may inhibit the chance of a solid fusion. Tylenol is okay to take for pain. MANAGING PAIN AFTER SPINAL SURGERY 1. Narcotic medication is intended for short-term use and will be provided for surgical pain. Surgical pain usually lasts for a period of 4-6 weeks. Narcotic medication includes Percocet, Vicodin, Darvocet, Tylenol #3 or Lortab. 2. Longer-term pain is more appropriately treated with non-narcotic medication such as Tylenol ES. 3. Muscle spasm is not appropriately treated with narcotics. Muscle relaxers such as Soma, Flexeril or Skelaxin can be used along with Tylenol ES. 4. Remember that we all live with some "aches and pains". This is not unusual or uncommon after an injury or as we get older. a. Back pain is expected and may include muscle spasms for 4 to 6 weeks after surgery. The pain should gradually improve. If the pain worsens for no apparent reason, please contact the office. b. Intermittent leg pain may also be experienced and should not be concerned about unless it worsens for no apparent reason. If so, please contact the office. 5. We will provide appropriate medication within the normal guidelines of their prescribed use. We will also be very cautious and aware of potential abuse and extended duration of patients' medication needs. a. Pain medications are for your comfort and to assist with sleep and rest so that the tissue can heal. They are not provided in order to return to normal activity and should not be used through the day. To do so or worsening pain at night can result from ongoing tissue damage and development of tolerance to the prescribed medicine. 6. Please allow 2-3 days to process refills. Prescriptions will not be mailed but must be picked up at the office. FOLLOW UP VISIT: Keep your scheduled follow-up appointment. Any questions, please call the office at . Pending Studies at Discharge: No Stand-Alone Forms: [facility], Smoking Cessation Medications and DC Order Prescriptions: New tramadol 50 mg tablet 50 mg PO Q6H PRN (Reason: pain, moderate) Qty: 30 0RF oxycodone 5 mg tablet 5 mg PO Q6H PRN (Reason: pain, severe) Qty: 30 0RF oxycodone-acetaminophen [Percocet] 5-325 mg tablet 1 tab PO Q8H Qty: 30 0RF Continued atorvastatin 20 mg Tablet 20 mg PO QAM cyanocobalamin (vitamin B-12) [Vitamin B-12] 1,000 mcg Tablet 1,000 mcg PO Q OTHER DAY levothyroxine 50 mcg Tablet 50 mcg PO QAM triamterene-hydrochlorothiazid 37.5-25 mg Tablet 1 tab PO QAM zolpidem 10 mg Tablet 10 mg PO HS cholecalciferol (vitamin D3) [Vitamin D3] 25 mcg (1,000 unit) Capsule 50 mcg PO QAM zinc 50 mg Capsule 50 mg PO QAM metoprolol tartrate 25 mg Tablet 25 mg PO QAM gabapentin 400 mg Tablet 400 mg PO QID metformin 500 mg tablet extended release 24 hr 500 mg PO DAILY Discharge Orders: Discharge Order (Routine); Ordered 06/27/22 Ordered By: Tim Donaldson Admission Data Admit Date/Time: 06/24/22 10:46 Attending Provider: Tim Donaldson Admit Provider: Tim Donaldson Primary Care Provider: Tawanna Ayon Other Providers: Cate Davis ; Ryan Franco
--- NOTE | 2022-06-27 08:38 | Hospitalist Progress Note ---
Date of Service June 27, 2022 Assessment & Plan (1) Neurogenic claudication due to lumbar spinal stenosis: Plan: Status post day#3 L3-L5 Decompression and Fusion performed by Dr. Donaldson No postop complication Continue incentive spirometry Pain control as per Ortho Continue PT /OT eval Fall precaution Acute blood loss anemia, post-op and likely also dilutional Pre-op Hgb 13.7 expected, no need for blood transfusion Hemoglobin 9.1 - stable from previous days monitor H&H (2) Prediabetes: Plan: Continue to hold metformin during admission Continue insulin sliding scale Continue monitor blood sugar (3) Hypothyroidism: Plan: Continue levothyroxine 50 mcg daily (4) HTN (hypertension): Plan: BP stable Continue metoprolol, triamterene / hydrochlorothiazide (5) CKD (chronic kidney disease), stage III: Plan: Creatinine stable (6) HLD (hyperlipidemia): Plan: Continue atorvastatin Hypokalemia Possible related to triamterene/HCTZ Potassium 3.8 today K replace and monitor Continue monitor BMP Admission and Anticipated Discharge Date Admission Date: June 24, 2022 Subjective Patient seen in follow-up of med consult s/p spinal surgery Standing up in her room with a walker, RN at the bedside Reports back pain is improved and overall feels better Voiding without difficulty, passing flatus, had BM yesterday Denies any fever, chills,chest pain, palpitation, dizziness, shortness of breath, abd. pain, n/v Possibly DC later today Review of Systems Review of Systems: All systems reviewed & are unremarkable except as noted in Subjective Physical Exam Physical Exam: General- No acute distress Head- at raumatic Eyes- PER RL, EOMI, ENT- izzy pharynx clear Neck - supple, no JVD L ungs- clear to aus cultation Heart- r egular rhythm; no murmur Abdomen- no rmal bowel sounds, soft, nontender E xtremities- moves extremities Neuro - alert, oriented x 3; PERRL, EOMI; no facial palsy; n o dysarthria, move s extremities Skin - warm & dry Results & Data Results & Data Vital Signs (Past 12 Hours) Vital Signs Temp Pulse Resp BP Pulse Ox O2 Del Method 06/27/22 07:55 Room Air 06/27/22 07:44 36.4 C L 78 16 102/62 99 Room Air 06/26/22 21:18 37.1 C 83 18 106/65 97 Room Air Laboratory Results 06/27/22 06/27/22 06/27/22 Range/Units 07:57 05:32 05:32 WBC 8.05 (4.8-10.8) K/ul RBC 2.98 L (4.20-5.40) M/uL Hgb 9.1 L (12.0-16.0) g/dl Hct 27.3 L (37.0-47.0) % MCV 91.6 (80.0-100.0) fL MCH 30.5 (25.0-34.0) pg MCHC 33.3 (32.0-36.0) g/dL RDW Std Deviation 42.6 (36.4-46.3) fL RDW Coeff of Elaina 12.8 (11.5-14.5) % Plt Count 215 (130-400) K/uL MPV 10.7 (9.4-12.4) fL Sodium 141 (136-145) mmol/L Potassium 3.8 (3.5-5.1) mmol/L Chloride 105 (98-107) mmol/L Carbon Dioxide 30 (21-32) mmol/L Anion Gap 6 (3-11) BUN 18 (6-23) mg/dl Creatinine 0.77 (0.6-1.2) mg/dl Est Cr Clr Drug Dosing 75.3 ml/min Est GFR ( Amer) 92.0 ml/min Est GFR (Non-Af Amer) 79.3 ml/min BUN/Creatinine Ratio 23.4 H (10-20) Glucose 108 H (70-99(Fasting)) mg/dl POC Glucose 108 H (70-99) mg/dl Calcium 9.0 (8.6-10.3) mg/dl Hepatitis C Ab (EIA) (NON-REACTIVE) Hep C Ab Signal/Cutoff (<1.00) 06/26/22 06/26/22 06/26/22 Range/Units 20:36 17:00 12:02 WBC (4.8-10.8) K/ul RBC (4.20-5.40) M/uL Hgb (12.0-16.0) g/dl Hct (37.0-47.0) % MCV (80.0-100.0) fL MCH (25.0-34.0) pg MCHC (32.0-36.0) g/dL RDW Std Deviation (36.4-46.3) fL RDW Coeff of Elaina (11.5-14.5) % Plt Count (130-400) K/uL MPV (9.4-12.4) fL Sodium (136-145) mmol/L Potassium (3.5-5.1) mmol/L Chloride (98-107) mmol/L Carbon Dioxide (21-32) mmol/L Anion Gap (3-11) BUN (6-23) mg/dl Creatinine (0.6-1.2) mg/dl Est Cr Clr Drug Dosing ml/min Est GFR ( Amer) ml/min Est GFR (Non-Af Amer) ml/min BUN/Creatinine Ratio (10-20) Glucose (70-99(Fasting)) mg/dl POC Glucose 130 H 152 H 136 H (70-99) mg/dl Calcium (8.6-10.3) mg/dl Hepatitis C Ab (EIA) (NON-REACTIVE) Hep C Ab Signal/Cutoff (<1.00) 06/25/22 Range/Units 05:31 WBC (4.8-10.8) K/ul RBC (4.20-5.40) M/uL Hgb (12.0-16.0) g/dl Hct (37.0-47.0) % MCV (80.0-100.0) fL MCH (25.0-34.0) pg MCHC (32.0-36.0) g/dL RDW Std Deviation (36.4-46.3) fL RDW Coeff of Elaina (11.5-14.5) % Plt Count (130-400) K/uL MPV (9.4-12.4) fL Sodium (136-145) mmol/L Potassium (3.5-5.1) mmol/L Chloride (98-107) mmol/L Carbon Dioxide (21-32) mmol/L Anion Gap (3-11) BUN (6-23) mg/dl Creatinine (0.6-1.2) mg/dl Est Cr Clr Drug Dosing ml/min Est GFR ( Amer) ml/min Est GFR (Non-Af Amer) ml/min BUN/Creatinine Ratio (10-20) Glucose (70-99(Fasting)) mg/dl POC Glucose (70-99) mg/dl Calcium (8.6-10.3) mg/dl Hepatitis C Ab (EIA) NON-REACTIVE (NON-REACTIVE) Hep C Ab Signal/Cutoff 0.03 (<1.00) Medications Administered Current Inpatient Medications Acetaminophen (Acetaminophen 500 Mg Tab) 1,000 mg PO Q8H PRN PRN Reason: MILD Pain Scale 1,2,3 & Pre PT Stop: 07/24/22 12:32 Al Hydrox/Mg Hydrox/Simethicone (Aluminum/Magnesium Susp 30 Ml Udc) 30 ml PO Q6H PRN PRN Reason: Dyspepsia Stop: 07/24/22 12:32 Atorvastatin Calcium (Atorvastatin 20 Mg Tab) 20 mg PO QAM [facility] Stop: 07/25/22 08:59 Last Admin: 06/26/22 08:06 Dose: 20 mg Bisacodyl (Bisacodyl 10 Mg Supp) 10 mg ME DAILY PRN PRN Reason: Constipation Stop: 07/24/22 12:32 Last Admin: 06/26/22 15:32 Dose: 10 mg Cyanocobalamin (Cyanocobalamin (B-12) 500 Mcg Tablet) 1,000 mcg PO Q2D@0900 [facility] Stop: 07/24/22 12:55 Last Admin: 06/26/22 08:06 Dose: 1,000 mcg Dextrose (Dextrose 50% 50 Ml Syringe) 25 - 50 ml IV UD PRN; Protocol PRN Reason: Hypoglycemia Protocol Stop: 07/24/22 13:14 Diphenhydramine HCl (Diphenhydramine Capsule 25 Mg Cap) 25 mg PO Q6H PRN PRN Reason: Allergic Rhinitis/Insomnia Stop: 07/24/22 12:32 Famotidine (Famotidine 20 Mg Tab) 20 mg PO Q12H PRN PRN Reason: Dyspepsia Stop: 07/24/22 12:32 Gabapentin (Gabapentin 400 Mg Cap) 400 mg PO QID [facility] Stop: 07/24/22 12:59 Last Admin: 06/26/22 21:43 Dose: 400 mg Glucagon (Glucagon For Inj 1 Mg Vial) 1 mg IM UD PRN; Protocol PRN Reason: Hypoglycemia Protocol Stop: 07/24/22 13:14 Glucose (Glucose 40% Gel 15 Gm Tube) 15 - 30 gm PO UD PRN; Protocol PRN Reason: Hypoglycemia Protocol Stop: 07/24/22 13:14 Glucose (Glucose 10 Tab/Tube) 4 - 8 tab PO UD PRN; Protocol PRN Reason: Hypoglycemia Protocol Stop: 07/24/22 13:14 Hydromorphone HCl (Hydromorphone Inj 0.5 Mg/0.5 Ml Syr) 0.5 mg IV Q3H PRN PRN Reason: MODERATE Pain (Scale 4,5,6) & Pre PT Stop: 07/08/22 12:32 Hydromorphone HCl (Hydromorphone Inj 1 Mg/Ml Syringe) 1 mg IV Q3H PRN PRN Reason: SEVERE Pain (Scale 7,8,9,10) Stop: 07/08/22 12:32 Last Admin: 06/25/22 11:49 Dose: 1 mg Hydroxyzine HCl (Hydroxyzine Hcl 25 Mg Tab) 25 mg PO Q8H PRN PRN Reason: Anxiety Stop: 07/24/22 12:32 Promethazine HCl 12.5 mg/ (Sodium Chloride) 50.5 mls @ 202 mls/hr IV Q6H PRN PRN Reason: Nausea &/or Vomiting Stop: 07/24/22 12:32 Dexamethasone 6 mg/ Syringe 1.5 mls @ 1 mls/min IV DAILY [facility] Stop: 07/25/22 08:59 Last Admin: 06/26/22 08:06 Dose: 1 mls/min Influenza Virus Vaccine Quadrival (Do Not Administer Flu Vaccine) 1 each N/A PRN PRN PRN Reason: Notification Stop: 07/24/22 12:32 Insulin Aspart (Insulin Aspart Per Unit Charge) 0 units SC ACHS [facility] Stop: 07/24/22 13:14 Last Admin: 06/26/22 20:47 Dose: Not Given Levothyroxine Sodium (Levothyroxine Sodium 50 Mcg Tablet) 50 mcg PO DAILYBB [facility] Stop: 07/25/22 06:29 Last Admin: 06/27/22 05:32 Dose: 50 mcg Lorazepam (Lorazepam 0.5 Mg Tab) 0.5 mg PO Q8H PRN PRN Reason: Sedation/Anxiety Stop: 07/24/22 12:32 Lorazepam (Lorazepam 2 Mg/1 Ml Vial) 0.5 mg IV Q8H PRN PRN Reason: Sedation/Anxiety Stop: 07/24/22 12:32 Magnesium Hydroxide (Magnesium Hydroxide Susp 30 Ml Udc) 30 ml PO Q24H PRN PRN Reason: Constipation Stop: 07/24/22 12:32 Metoclopramide HCl (Metoclopramide Hcl Inj 5 Mg/Ml 2 Ml Vial) 10 mg IV Q6H PRN PRN Reason: Nausea &/or Vomiting Stop: 07/24/22 12:32 Metoprolol Tartrate (Metoprolol Tartrate 25 Mg Tab) 25 mg PO QAM [facility] Stop: 07/25/22 08:59 Last Admin: 06/26/22 08:06 Dose: 25 mg Miscellaneous (Carbohydrates For Hypoglycemia ) 15 - 30 gm PO UD PRN PRN Reason: Hypoglycemia Treatment Stop: 07/24/22 13:14 Miscellaneous Information (Pharmacy Glycemic Mgmt Consult) 1 each N/A UD PRN PRN Reason: Consult Stop: 07/24/22 12:32 Naloxone HCl (Naloxone Hcl 0.4 Mg/1 Ml Vial/Carp) 0.1 mg IV Q5M PRN PRN Reason: Oversedation/Resp depression Stop: 07/24/22 12:32 Ondansetron HCl (Ondansetron Inj 2 Mg/Ml 2 Ml Vial) 4 mg IV Q6H PRN PRN Reason: Nausea &/or Vomiting Stop: 07/24/22 12:32 Ondansetron HCl (Ondansetron 4 Mg Od Tab) 4 mg PO Q6H PRN PRN Reason: Nausea Stop: 07/24/22 12:32 Oxycodone HCl (Oxycodone Hcl Ir 5 Mg Tab (Immediate Release)) 5 - 10 mg PO Q4H PRN PRN Reason: Pain & Pre PT Stop: 07/08/22 12:32 Last Admin: 06/26/22 19:32 Dose: 10 mg Pneumococcal Polyvalent Vaccine (Do Not Administer Pneumococcal Vaccine) 1 each N/A PRN PRN PRN Reason: Notification Stop: 07/24/22 12:32 Polyethylene Glycol (Polyethylene (Miralax) 17 Gm Pack) 17 gm PO Q6 [facility] Stop: 07/25/22 05:59 Last Admin: 06/27/22 05:32 Dose: Not Given Senna/Docusate Sodium (Docusate Sodium/Senna 50/8.6mg Tab) 2 tab PO HS [facility] Stop: 07/24/22 20:59 Last Admin: 06/26/22 21:43 Dose: 2 tab Sodium Biphosphate/Sodium Phosphate (Sod Phosphate/Sod Biphosphate Enema 132 Ml Btl) 132 ml ME ONE PRN PRN Reason: Constipation Stop: 07/24/22 12:32 Tramadol HCl (Tramadol Hcl 50 Mg Tablet) 50 - 100 mg PO Q4H PRN PRN Reason: Moderate-Severe pain & Pre PT Stop: 07/24/22 12:32 Last Admin: 06/24/22 19:57 Dose: 100 mg Triamterene/Hydrochlorothiazide (Triamterene/Hctz 37.5/25mg Tab) 1 tab PO QAM S Stop: 07/25/22 08:59 Last Admin: 06/26/22 08:06 Dose: 1 tab Vitamin D (Cholecalciferol 1,000 Units 25 Mcg Tab) 1,000 units PO QAM [facility] Stop: 07/25/22 08:59 Last Admin: 06/26/22 08:05 Dose: 1,000 units Zinc Sulfate (Zinc Sulfate 220 Mg Capsule) 220 mg PO QAM [facility] Stop: 07/25/22 08:59 Last Admin: 06/26/22 08:06 Dose: 220 mg Zolpidem Tartrate (Zolpidem Tartrate 10 Mg Tab) 10 mg PO HS [facility] Stop: 07/24/22 20:59 Last Admin: 06/26/22 23:16 Dose: 10 mg
[2022-06-27] MEDS: CHOLECALCIFEROL 1,000 UNITS 25 MCG TAB PO SCH (08:52)
[2022-06-27] MEDS: GABAPENTIN 400 MG CAP PO SCH (08:52)
[2022-06-27] MEDS: TRIAMTERENE/HCTZ 37.5/25MG TAB PO SCH (08:52)
[2022-06-27] MEDS: ATORVASTATIN 20 MG TAB PO SCH (08:52)
[2022-06-27] MEDS: dexAMETHasone 6 MG in SYRINGE 0 ML IV SCH (08:52)
[2022-06-27] MEDS: METOPROLOL TARTRATE 25 MG TAB PO SCH (08:52)
[2022-06-27] MEDS: ZINC SULFATE 220 MG CAPSULE PO SCH (08:52)
[2022-06-27] MEDS: INSULIN ASPART PER UNIT CHARGE SC SCH (08:56)
[2022-06-27] MEDS: oxyCODONE HCL IR 5 MG TAB (IMMEDIATE RELEASE) PO PRN (09:07)
== END 2022-06-27 12:44 | disposition home or self-care (01) | DRG 454 ==
LOC: ASU 07:13 → 3E 10:46